=== PATIENT | female | born 2000 | race Hispanic/Latino ===

== ENCOUNTER 2020-09-05 21:53 | Emergency (ER) | payer OTHER ==
[~2020-09-05] VITALS: Ht 157.5 cm; Wt 68.0 kg
== END 2020-09-06 00:01 | disposition home or self-care (01) ==
LOC: ER 23:01
DX: U07.1 COVID-19 (principal); J18.9 Pneumonia, unspecified organism; R05 Cough
CPT/HCPCS: 71045; 99283